=== PATIENT | male | born 1995 | race Caucasian/White ===

== ENCOUNTER 2016-06-12 05:21 | Emergency (ER) | payer BC ==
[2016-06-12] MEDS ORDERED: Ketorolac 60 MG/2 ML SDV IM ONE (05:39)
[2016-06-12] MEDS ORDERED: Acetaminophen 325 MG Tab PO ONE (05:39)
--- NOTE | 2016-06-12 05:45 | EDM.PDOC ---
ED HPI GENERAL MEDICAL PROBLEM - General Chief Complaint: General Stated Complaint: COUGH Time Seen by Provider: 06/12/16 05:35 - History of Present Illness INITIAL COMMENTS - FREE TEXT/NARRATIVE: History of present illness: The patient is a 21-year-old male with no stated medical problems smokes cigarettes and marijuana daily presents with complaints of cough productive of some phlegm nasal congestion and drainage, episodic nausea and vomiting, headache bodyaches sore throat but has been on and off for the last 7 days. Patient has no chest pain shortness of breath or abdominal pain and hasn't taken his temperature but has felt feverish. Patient did not get his influenza shot this year and has been taking [id number] DayQuil, NyQuil and Tylenol for his symptoms. He's been eating and drinking normally and is only intermittently had the nausea and vomiting. His headache is all over and he has had no diarrhea. Review of systems: As per history of present illness and below otherwise all systems reviewed and negative. Past medical history: As per history of present illness and as reviewed below otherwise noncontributory. Surgical history: As per history of present illness and as reviewed below otherwise noncontributory. Social history: No reported history of drug or alcohol abuse. Family history: As per history of present illness and as reviewed below otherwise noncontributory. Physical exam: General: Well-developed thin man who speaks a slight nasal quality to voice but his voice is not hoarse and he is not breathless. Vital signs have been noted by me. HEENT: Atraumatic, normocephalic, pupils reactive, negative for conjunctival pallor or scleral icterus, mucous membranes moist, throat clear of exudates but posterior oropharynx is very reddened, there is some shotty cervical adenopathy but no posterior adenopathy or nuchal rigidity, and nasal turbinates are boggy bilaterally with clear drainage,, neck supple, nontender, trachea midline. Lungs: Clear to auscultation, breath sounds equal bilaterally, chest nontender. No work or breathing or sensory muscle use Heart: S1S2, regular, negative for clicks, rubs, or JVD. Abdomen: Soft, nondistended, nontender. NABS Genitourinary: Deferred. Rectal: Deferred. Extremities: Atraumatic, negative for cords or calf pain. Neurovascular unremarkable. Neuro: Awake, alert, oriented. Cranial nerves II through XII unremarkable. Cerebellum unremarkable. Motor and sensory unremarkable throughout. Exam nonfocal. Diagnostics: Influenza swab rapid strep Therapeutics: Tylenol Toradol Impression: Pharyngitis/sinusitis/URI Definitive disposition and diagnosis as appropriate pending reevaluation and review of above. headache Pain Score (Numeric/FACES): 5 - Related Data Allergies Allergy/AdvReac Type Severity Reaction Status Date / Time No Known Allergies Allergy Verified 06/12/16 05:30 Home Meds: Home Meds . [No Known Home Meds] 10/17/14 [History] Past Medical History - Past Health History Medical/Surgical History: Denies Medical/Surgical History - Infectious Disease History Infectious Disease History: Reports: None Social & Family History - Family History Family Medical History: Noncontributory - Tobacco Use Smoking Status *Q: Current Every Day Smoker Years of Tobacco use: 10 Packs/Tins Daily: 1 - Alcohol Use Days Per Week of Alcohol Use: 2 Number of Drinks Per Day: 2 Total Drinks Per Week: 4 - Recreational Drug Use Recreational Drug Use: Yes Drug Use in Last 12 Months: Yes Recreational Drug Type: Reports: Marijuana/Hashish Recreational Drug Use Frequency: Daily ED ROS GENERAL - Review of Systems Review Of Systems: ROS reveals no pertinent complaints other than HPI. ED EXAM, GENERAL - Physical Exam Exam: See Below (See dictation) Course - Vital Signs Last Recorded V/S: Last Vital Signs Temp 37.8 C 06/12/16 05:30 Pulse 103 H 06/12/16 05:30 Resp 20 06/12/16 05:30 BP 113/57 L 06/12/16 05:30 Pulse Ox 97 06/12/16 05:30 - Orders/Labs/Meds Orders: Active Orders 24 hr Category Date Time Status CULTURE STREP A CONFIRMATION [] Stat Lab 06/12/16 05:39 Results STREP SCRN A RAPID W CULT CONF [] Stat Lab 06/12/16 05:39 Results Meds: Medications Discontinued Medications Generic Name Dose Route Start Last Admin Trade Name Freq PRN Reason Stop Dose Admin Acetaminophen 650 mg 06/12/16 05:39 06/12/16 05:47 Tylenol PO 06/12/16 05:40 650 mg NOW ONE Administration Ketorolac Tromethamine 60 mg 06/12/16 05:39 06/12/16 05:48 Toradol IM 06/12/16 05:40 60 mg ONETIME ONE Administration Departure - Departure Time of Disposition: 06:10 Disposition: Home, Self-Care 01 Condition: good Clinical Impression: Pharyngitis Qualifiers: Pharyngitis/tonsillitis etiology: unspecified etiology Qualified Code(s): J02.9 - Acute pharyngitis, unspecified URI (upper respiratory infection) Qualifiers: URI type: unspecified URI Qualified Code(s): J06.9 - Acute upper respiratory infection, unspecified Referrals: PCP,None [Primary Care Provider] - Forms: ED Department Discharge Additional Instructions: The following information is given to patients seen in the emergency department who are being discharged to home. This information is to outline your options for follow-up care. We provide all patients seen in our emergency department with a follow-up referral. The need for follow-up, as well as the timing and circumstances, are variable depending upon the specifics of your emergency department visit. If you don't have a primary care physician on staff, we will provide you with a referral. We always advise you to contact your personal physician following an emergency department visit to inform them of the circumstance of the visit and for follow-up with them and/or the need for any referrals to a consulting specialist. The emergency department will also refer you to a specialist when appropriate. This referral assures that you have the opportunity for followup care with a specialist. All of these measure are taken in an effort to provide you with optimal care, which includes your followup. Under all circumstances we always encourage you to contact your private physician who remains a resource for coordinating your care. When calling for followup care, please make the office aware that this follow-up is from your recent emergency room visit. If for any reason you are refused follow-up, please contact the [facility] emergency department at and ask to speak to the emergency department charge nurse. [facility] [address] Please push hydration and use [id number] Tylenol or ibuprofen for fever and pain/body aches. Take [id number] Benadryl and/or Claritin for sinus congestion to help dry her sinuses. Please take all medications as prescribed from the ER and call and followup with primary care in the clinic for further evaluation and treatment as needed. Use return to the ER as needed discussed - My Orders Last 24 Hours: My Active Orders 06/12/16 05:39 CULTURE STREP A CONFIRMATION [RM] Stat STREP SCRN A RAPID W CULT CONF [RM] Stat - Assessment/Plan Last 24 Hours: My Active Orders 06/12/16 05:39 CULTURE STREP A CONFIRMATION [RM] Stat STREP SCRN A RAPID W CULT CONF [] Stat
[2016-06-12 06:25] VITALS: BP 94/54
== END 2016-06-12 06:14 | disposition home or self-care (01) ==
LOC: MW.ED 05:21
DX: J06.9 Acute upper respiratory infection, unspecified (principal); J02.9 Acute pharyngitis, unspecified; J32.9 Chronic sinusitis, unspecified; F17.210 Nicotine dependence, cigarettes, uncomplicated
CPT/HCPCS: 87081; 87804; 87880; 99284; A9270; J1885; 99283

== ENCOUNTER 2019-03-24 12:53 | Emergency (ER) | payer BC ==
--- NOTE | 2019-03-24 13:34 | EDM.PDOCBH ---
ED HPI GENERAL MEDICAL PROBLEM - General Chief Complaint: Behavioral/Psych Stated Complaint: MENTAL HEALTH Time Seen by Provider: 03/24/19 13:18 - History of Present Illness INITIAL COMMENTS - FREE TEXT/NARRATIVE: Anxiety disorder, difficulty with train of thought but patient denies having any suicidal homicidal ideation he denies being a danger to him self. He is willing to seek outpatient counseling and does not want to be inpatient. He has not done anything to harm himself. 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 He is cooperative and lucid. Denies any recent self-harm or thoughts of self-harm. Onset: Gradual Duration: Day(s): Severity: Mild Improves with: Reports: None - Related Data Allergies Allergy/AdvReac Type Severity Reaction Status Date / Time No Known Allergies Allergy Verified 03/24/19 13:10 Home Meds: Home Meds hydrOXYzine pamoate [Vistaril] 50 mg PO Q8H PRN #40 cap 03/24/19 [Rx] Past Medical History - Past Health History Medical/Surgical History: Denies Medical/Surgical History Psychiatric History: Reports: Anxiety, Depression - Infectious Disease History Infectious Disease History: Reports: None Social & Family History - Family History Family Medical History: Noncontributory - Tobacco Use Smoking Status *Q: Current Every Day Smoker Years of Tobacco use: 5 Packs/Tins Daily: 1 - Caffeine Use Caffeine Use: Reports: Coffee - Recreational Drug Use Recreational Drug Use: No ED ROS GENERAL - Review of Systems Review Of Systems: See Below Constitutional: Reports: No Symptoms HEENT: Reports: No Symptoms Respiratory: Reports: No Symptoms Cardiovascular: Reports: No Symptoms GI/Abdominal: Reports: No Symptoms : Reports: No Symptoms Musculoskeletal: Reports: No Symptoms Skin: Reports: No Symptoms Neurological: Reports: No Symptoms Psychiatric: Reports: Anxiety Immunologic: Reports: No Symptoms ED EXAM, BEHAVIORAL HEALTH - Physical Exam Exam: See Below Exam Limited By: No Limitations General Appearance: Alert, WD/WN, No Apparent Distress Eye Exam: Bilateral Eye: Normal Inspection Ears: Normal External Exam, Normal Canal, Hearing Grossly Normal, Normal TMs Nose: Normal Inspection, Normal Mucosa, No Blood Throat/Mouth: Normal Inspection, Normal Lips, Normal Teeth, Normal Gums, Normal Oropharynx, Normal Voice, No Airway Compromise Head: Atraumatic, Normocephalic Neck: Normal Inspection, Supple, Non-Tender, Full Range of Motion Respiratory/Chest: No Respiratory Distress, Lungs Clear, Normal Breath Sounds, No Accessory Muscle Use, Chest Non-Tender Cardiovascular: Normal Peripheral Pulses, Regular Rate, Rhythm, No Edema, No Gallop, No JVD, No Murmur, No Rub GI/Abdominal: Normal Bowel Sounds, Soft, Non-Tender, No Organomegaly, No Distention, No Abnormal Bruit, No Mass Extremities: Normal Inspection, Normal Range of Motion, Non-Tender, Normal Capillary Refill, No Pedal Edema Neurological: Alert, Normal Mood/Affect, CN II-XII Intact Psychiatric: Alert, Normal Affect, Normal Cognition, Normal Mood, Restless Skin Exam: Warm COURSE, BEHAVIORAL HEALTH COMP - Course Vital Signs: Last Vital Signs Temp 98.1 F 03/24/19 13:11 Pulse 72 03/24/19 13:11 Resp 16 03/24/19 13:11 BP 102/62 03/24/19 13:11 Pulse Ox 97 03/24/19 13:11 Departure - Departure Time of Disposition: 13:37 Disposition: Home, Self-Care 01 Condition: Good Clinical Impression: Anxiety - Discharge Information *PRESCRIPTION DRUG MONITORING PROGRAM REVIEWED*: Not Applicable *COPY OF PRESCRIPTION DRUG MONITORING REPORT IN PATIENT JOSHUA: Not Applicable Instructions: Living With Anxiety, Generalized Anxiety Disorder, Adult Additional Instructions: Follow-up with mental health as directed. Turn to emergency department if you have suicidal thoughts or think that you may be at risk for self-harm [facility] [address] [place] [address] [place] [address] Sepsis Event Note - Evaluation Sepsis Screening Result: No Definite Risk - Focused Exam Vital Signs: Vital Signs Temp Pulse Resp BP Pulse Ox 03/24/19 13:11 98.1 F 72 16 102/62 97 Date Exam was Performed: 03/24/19 Time Exam was Performed: 13:29
[2019-03-24 14:09] VITALS: BP 109/52; PULSE 68
== END 2019-03-24 14:10 | disposition home or self-care (01) ==
LOC: MW.ED 12:53
DX: F41.9 Anxiety disorder, unspecified (principal); F17.210 Nicotine dependence, cigarettes, uncomplicated
CPT/HCPCS: 99282; 99284